=== PATIENT | female | born 1960 | race Hispanic/Latino ===

== ENCOUNTER → 2017-06-16 | Outpatient (CLI) | payer BC ==
--- NOTE | 2017-06-24 08:20 | Diagnostic Imaging Report ---
#[id number] - [facility] #BILATERAL DIGITAL SCREENING MAMMOGRAM WITH CAD: 06/16/2017 CLINICAL: Routine screening. Comparison is made to exam dated: 07/09/2015 mammogram - [facility]. Current study contains 4 films. There are scattered fibroglandular elements in both breasts. Current study was also evaluated with a Computer Aided Detection (CAD) system. There are benign lymph nodes in both breasts. There also are benign calcifications in the left breast. No significant masses, calcifications, or other findings are seen in either breast. There has been no significant interval change. IMPRESSION: BENIGN There is no mammographic evidence of malignancy. A 1 year screening mammogram is recommended. The patient will be notified by letter of the results. Bernardo leavitt/yolette:06/23/2017 07:26:36 Leave Manager: Darcy LAM(Palma)(Femi), [facility] letter sent: Compared to Prior B9 Mammogram BI-RADS: 2 Benign
== END ==
LOC: MAMMO 08:17
PROVIDERS: ATTEND Family Medicine
DX: Z12.31 Encounter for screening mammogram for malignant neoplasm of breast (principal)

== ENCOUNTER 2018-12-05 16:19 | Emergency (ER) | payer BC ==
[~2018-12-05] VITALS: Ht 149.9 cm; Wt 95.3 kg
--- OUTSIDE RECORDS SUMMARY | 2018-12-05 16:21 | XMS REPORT ---
Author Author [facility] Address Unknown Phone Unavailable Care Team Providers Care Item Processor Name Role Phone JIN THOMPSON Unavailable Unavailable Problems This patient has no known problems. Allergies, Adverse Reactions, Alerts This patient has no known allergies or adverse reactions. Medications This patient has no known medications. Results Test Description Test Time Test Comments Text Results Atomic Results Result Comments MAMMOGRAM DIGITAL SCR BI [place] [address] Patient Name: MARNIE CHURCHILL MR #: [id number] : 1960 Age/Sex: 57/F Req #: [id number] [facility] Physician: Ordered by: ODNNA ALEMAN, JIN Hussein MD Report #: [id number] Location: MAMMO Room/Bed: Procedure: [id number] MG/MAMMOGRAM DIGITAL SCR BI Exam Date: 06/16/17 Exam Time: 0833 REPORT STATUS: Signed #[id number] - [facility] #BILATERAL DIGITAL SCREENING MAMMOGRAM WITH CAD: 06/16/2017 CLINICAL: Routine screening. Comparison is made to exam dated: 07/09/2015 mammogram - [facility]. Current study contains 4 films. There are scattered fibroglandular elements in both breasts. Current study was also evaluated with a Computer Aided Detection (CAD) system. There are benign lymph nodes in both breasts. There also are benign calcifications in the left breast. No significant masses, calcifications, or other findings are seen in either breast. There has been no significant interval change. IMPRESSION: BENIGN There is no mammographic evidence of malignancy. A 1 year screening mammogram is recommended. The patient will be notified by letter of the resu lts. Carolina leavitt/kaila:06/23/2017 07:26:36 Infrastructure Project Manager: Darcy ROSS)(Femi), [facility] letter sent: Compared to Prior B9 Mammogram BI-RADS: 2 Benign Dictated By: CAROLINA BURNETT DO 5 Transcribed By: KAILA on 06/23/17725 COPY TO: JIN THOMPSON
[2018-12-05 16:48] LABS: BASOPHILS # (AUTO) 0.1 (0.0-0.1); BASOPHILS % 0.5 % (0.0-1.0); EOSINOPHILS # (AUTO) 0.4 (0.0-0.4); EOSINOPHILS % 3.3 % (0.0-6.0); HEMATOCRIT 44.5 % (34.2-44.1); LYMPHOCYTES # (AUTO) 2.4 (1.0-3.2); LYMPHOCYTES % 20.3 % (18.0-39.1); MEAN CORPUSCULAR HEMOGLOBIN 32.1 pg (28-32); MEAN CORPUSCULAR HGB CONC 33.7 g/dL (31-35); MEAN CORPUSCULAR VOLUME 95.1 fL (81-99); MONOCYTES # (AUTO) 1.1 (0.2-0.8); MONOCYTES % 9.6 % (4.4-11.3); NEUTROPHILS # (AUTO) 7.6 (2.1-6.9); PLATELET COUNT 202 x10e3/uL (140-360); RED BLOOD COUNT 4.68 x10e6/uL (3.6-5.1); RED CELL DISTRIBUTION WIDTH 13.2 % (11.7-14.4)
[2018-12-05 17:11] LABS: ALBUMIN 3.8 g/dL (3.5-5.0); ALBUMIN/GLOBULIN RATIO 1.1 (0.8-2.0); ANION GAP 15.5 mmol/L (8-16); CALCIUM 9.5 mg/dL (8.4-10.2); CREATININE, SERUM 1.29 mg/dL (0.57-1.11); POTASSIUM 3.5 mmol/L (3.5-5.1)
[2018-12-05 17:26] LABS: BILIRUBIN,URINE NEGATIVE (NEGATIVE); CLARITY,URINE SL CLOUDY (CLEAR); COLOR,URINE YELLOW (YELLOW); KETONES,URINE NEGATIVE (NEGATIVE); LEUKOCYTE ESTERASE ,URINE TRACE (NEGATIVE); NITRITE,URINE NEGATIVE (NEGATIVE); PROTEIN,URINE DIPSTICK 1+ (NEGATIVE); URINE UROBILINOGEN 1 mg/dL (0.2 - 1)
--- NOTE | 2018-12-05 17:32 | Diagnostic Imaging Report ---
EXAMINATION: CT of the abdomen and pelvis without contrast. TECHNIQUE: Spiral CT images of the abdomen and pelvis were performed from the lung bases to the lesser trochanters. No intravenous contrast was given per renal stone protocol. Coronal and sagittal reformatted images were obtained. COMPARISON: None. CLINICAL HISTORY:Right flank pain for 3 days DISCUSSION: ABSENCE OF INTRAVENOUS CONTRAST DECREASES SENSITIVITY FOR DETECTION OF FOCAL LESIONS AND VASCULAR PATHOLOGY. ABDOMEN/PELVIS: LOWER THORAX: Unremarkable. HEPATOBILIARY: Liver size is in the upper limit of normal. Diffusely decreased attenuation consistent with steatosis. No focal lesions. No intra or extrahepatic biliary ductal dilation. GALLBLADDER: No radio-opaque stones or sludge. No wall thickening. SPLEEN: No splenomegaly. PANCREAS: No focal masses or ductal dilatation. ADRENALS: 2.1 x 1.6 x 2.3 cm fat-containing lesion in the left adrenal gland. Right adrenal is unremarkable. KIDNEYS/URETERS: No renal or ureteral calculi, hydronephrosis or obstruction. 1.5 cm mostly exophytic fluid density simple cyst in the inferior pole of the right kidney (series 3, image 67 and sagittal image 44). No other renal contour abnormalities or perinephric stranding. PELVIC ORGANS/BLADDER: Bladder is unremarkable. No focal lesions or stones. Lobular contour of the uterus. No adnexal masses. PERITONEUM/RETROPERITONEUM: No free air or fluid. LYMPH NODES: No intra-abdominal,retroperitoneal, pelvic or inguinal lymphadenopathy. VESSELS: Mild atherosclerotic calcification of the distal abdominal aorta and proximal iliac vessels. GI TRACT: No bowel dilation or evidence of obstruction. Appendix is well identified and normal in caliber. No pericolonic inflammatory changes. BONES AND SOFT TISSUES: No aggressive lytic lesions. Degenerative disc changes in the lumbosacral spine, worse at L5-S1 with marked intervertebral disc space narrowing. Small fat-containing umbilical hernia. IMPRESSION: 1. No renal, ureteral or bladder calculi. No hydronephrosis or obstruction. 2. 2.3 cm left adrenal myelolipoma. No further diagnostic or follow-up imaging is indicated. 3. Liver size in the upper limit of normal with diffuse steatosis. No focal lesions in this noncontrast exam. Signed by: Dr. Harsha Hernandez M.D. on 12/05/2018 5:29 PM
[2018-12-05 17:58] LABS: BACTERIA,URINE FEW /HPF; EPITHELIAL CELLS,URINE RARE /LPF; PREGNANCY TEST, URINE NEGATIVE (NEGATIVE); RBC,URINE 0-5 /HPF (0-5)
[2018-12-05] MEDS ORDERED: ULTRAM50 MG PO (20:13)
[2018-12-05 20:28] VITALS: BP 114/59
== END 2018-12-05 20:43 | disposition home or self-care (01) ==
LOC: ER 16:19
DX: N30.00 Acute cystitis without hematuria (principal); D17.79 Benign lipomatous neoplasm of other sites; E03.9 Hypothyroidism, unspecified; I10 Essential (primary) hypertension; Z82.49 Family history of ischemic heart disease and other diseases of the circulatory system
CPT/HCPCS: 36415; 74176; 80053; 81001; 81025; 85025; 99284

== ENCOUNTER → 2019-02-28 | Outpatient (CLI) | payer BC ==
[~2019-02-28] MED LIST: ULTRAM50 MG PO
== END ==
LOC: MAMMO 08:26
PROVIDERS: ATTEND Family Medicine
DX: Z12.31 Encounter for screening mammogram for malignant neoplasm of breast (principal)
CPT/HCPCS: 77067

== ENCOUNTER → 2021-01-23 | Outpatient (CLI) | payer BC | LOC: MAMMO 07:57 | PROVIDERS: ATTEND Family Medicine | DX: Z12.31 Encounter for screening mammogram for malignant neoplasm of breast (principal) | CPT/HCPCS: 77067 ==

== ENCOUNTER → 2022-03-21 | Outpatient (CLI) | payer BC | LOC: MAMMO 08:20 | PROVIDERS: ATTEND Family Medicine | DX: Z12.31 Encounter for screening mammogram for malignant neoplasm of breast (principal) | CPT/HCPCS: 77067 ==